=== PATIENT | male | born 1975 | race Caucasian/White ===

== ENCOUNTER → 2019-08-23 15:20 | Outpatient (BNVA) | payer OTHER, SELFPAY | PROVIDERS: Family Provider Internal Medicine; PCP Internal Medicine; Visit Provider Internal Medicine | DX: E03.9 Hypothyroidism, unspecified (principal); F41.9 Anxiety disorder, unspecified; G47.33 Obstructive sleep apnea (adult) (pediatric); K75.81 Nonalcoholic steatohepatitis (NASH) | CPT/HCPCS: 80053; 80061; 83036; 84443; 85025 ==

== ENCOUNTER 2019-09-28 14:16 | Outpatient (CLI) | payer OTHER, SELFPAY ==
[2019-09-28 14:35] LABS: Volume Semen 2.4 mL (2-5)
[2019-09-28 14:37] LABS: Epithelial Count Semen 0-4 /hpf; Red Blood Count Semen 0-4 /hpf; Viscosity Semen Normal; White Blood Count Semen 0-4 /hpf
[2019-09-28 14:38] LABS: Pathology Referral Yes
[2019-09-28 14:39] LABS: PH Semen 8.5 (7.0-8.0)
== END 2019-09-28 14:17 | disposition home or self-care (01) ==
LOC: LAB 14:17
PROVIDERS: PCP Internal Medicine; Visit Provider Internal Medicine
DX: Z02.81 Encounter for paternity testing (principal)
CPT/HCPCS: 80500; 89320

== ENCOUNTER 2021-10-12 08:40 | Day surgery (SDC) | payer OTHER, SELFPAY ==
--- NOTE | 2021-10-12 07:30 | W.PM.OPSFHP ---
Same Day Surgery H&P Indication for Procedure/HPI DATE OF PROCEDURE: October 12, 2021 CHIEF COMPLAINT/INDICATIONFOR SURGICAL PROCEDURE: Dysphagia and hematochezia PREOP DIAGNOSIS: Dysphagia and hematochezia PLANNED PROCEDURE: Operation Date: 10/12/21 10:15 Proposed Procedures p EGD and Colonoscopy [id number],R13.10,K92.1(Not Applicable) - Brendan Omalley MD s Colonoscopy(Not Applicable) - Brendan Omalley MD Medications/Allergies* Home Medications Medication Instructions Recorded Confirmed Type ibuprofen 200 mg capsule 200 mg PO Q6H PRN 08/23/19 10/09/21 History Allergies/Adverse Reactions Allergy/AdvReac Type Severity Reaction Status Date / Time Penicillins Allergy unknown Verified 09/28/21 15:13 Pertinent History/Comorbid Conditions* Medical History (Updated 09/28/21 @ 15:25 by Brendan Omalley MD) Obesity Obstructive sleep apnea of adult Family History (Updated 08/23/19 @ 14:23 by LM Santiago) Cancer Grandfather Grandmother Social History Smoking and tobacco status: never smoked Alcohol intake: current service: No History of recent travel: No Current gender identity: Male Pertinent Exam Findings alert, oriented x 3, clear to auscultation bilaterally, regular rate & rhythm, operative site marked and procedure specific exam findings Recommendations Surgery/Procedure today Coding Level of Care Code Acute Apartment Community Assistant Manager for Jolene Ball
[2021-10-12 09:07] VITALS: BP 134/90; PULSE 76; RESP 18; TEMP 36.8; O2SAT 97
[2021-10-12] MEDS: sodium chloride 0.9% 1,000 ML 30 ML IV (09:18)
--- NOTE | 2021-10-12 09:52 | ANES.PREANE2 ---
Pre-Anesthetic Assessment Height/Weight: Height 1.8 m Weight 131.542 kg Temp Pulse Resp BP Pulse Ox 98.2 F 76 18 134/90 97 10/12/21 09:07 10/12/21 09:07 10/12/21 09:07 10/12/21 09:07 10/12/21 09:07 Preop Diagnosis: Hematochezia Operation Date: 10/12/21 10:15 Proposed Procedures p EGD and Colonoscopy [id number],R13.10,K92.1(Not Applicable) - Brendan Omalley MD s Colonoscopy(Not Applicable) - Brendan Omalley MD Familial anesthetic complications: none Was Beta Beverley taken within 24 hours: N/A Was Clonidine taken within 24 hours: N/A Last intake: Intake Last Liquid Date 10/11/21 Last Liquid Time 21:00 Last Solid Date 10/10/21 Last Solid Time 20:00 Social No alcohol and No tobacco Exam alert, oriented x 3, clear to auscultation bilaterally and regular rate & rhythm Airway Submandibular: within normal limits Cervical ROM: within normal limits Mallampati: Class II Dentition: full Pulmonary Sleep Apnea (wears CPAP) CV/HEM None reported METS > 4 None reported Hepatic None reported GI Gastroesophageal Reflux Disease Dysphagia Metabolic Morbid Obesity and None reported Musc/skel None reported Neuropsych Anxiety Anesthetic Plan ASA status: 3 (46 year old male with hx of GERALD, hematochezia, acute anxiety, and dysphagia ) Anesthesia: Anesthesia Evaluation, General and MAC Other: I discussed with the patient risks, goals, and benefits of MAC and general anesthesia. We discussed spectrum of MAC anesthesia including conversion to general as well as possibility of recall of intraoperative stimuli including discomfort/pain. Patient agrees to proceed with MAC. Risk of > 500 ml blood loss (7ml/kg in children): No Medications/Allergies Home Medications Medication Instructions Recorded Confirmed Last Taken Type ibuprofen 200 mg capsule 200 mg PO Q6H PRN 08/23/19 10/09/21 Unknown History Allergies Allergy/AdvReac Type Severity Reaction Status Date / Time Penicillins Allergy unknown Verified 09/28/21 15:13 Current Medications Generic Name Dose Route Start Last Admin Trade Name Freq PRN Reason Stop Dose Admin Sodium Chloride 1,000 mls @ 30 mls/hr 10/12/21 09:00 10/12/21 09:18 Sodium Chloride 0.9% IV 30 mls/hr .Q24H HUNG Administration PFSH Anesthesia Medical History Obesity Obstructive sleep apnea of adult Family History Grandfather Cancer Grandmother Cancer Social History Smoking and tobacco status: never smoked Alcohol intake: current service: No History of recent travel: No Current gender identity: Male Data Anesthesia Cardiac Studies: No Data to Display
[2021-10-12 11:30] VITALS: BP 118/83; PULSE 78; RESP 18; TEMP 36.1; O2SAT 94
--- NOTE | 2021-10-12 15:57 | ANE.PACU2 ---
Inpatient post-anesthesia follow up: Airway intact: Yes Vital signs: Temperature 97.0 F Pulse Rate 78 Respiratory Rate 18 Blood Pressure 118/83 Pulse Oximetry 94 Oxygen Delivery Me thod Room Air Oxygen Flow Rate Fraction of Inspir ed Oxygen Hydration adequate: Yes Nausea and vomiting: No Pain level: 1 Mental status: Baseline
[2021-10-13 10:45] LABS: H. Pylori / CLO Test Negative
== END 2021-10-12 12:00 | disposition home or self-care (01) ==
PROVIDERS: PCP Internal Medicine; Visit Provider Internal Medicine
PROC: 0DJ08ZZ Inspection of Upper Intestinal Tract, Via Natural or Artificial Opening Endoscopic (ICD-10-PCS; CPT 43235; principal; 2021-10-12 10:15)
PROC: 0DJD8ZZ Inspection of Lower Intestinal Tract, Via Natural or Artificial Opening Endoscopic (ICD-10-PCS; CPT 45378; 2021-10-12 10:15)
DX: K92.1 Melena (principal); R13.10 Dysphagia, unspecified; K57.30 Diverticulosis of large intestine without perforation or abscess without bleeding; K29.70 Gastritis, unspecified, without bleeding; K21.9 Gastro-esophageal reflux disease without esophagitis; E66.01 Morbid (severe) obesity due to excess calories; Z68.41 Body mass index [BMI] 40.0-44.9, adult; F41.9 Anxiety disorder, unspecified; G47.33 Obstructive sleep apnea (adult) (pediatric); K21.00 Gastro-esophageal reflux disease with esophagitis, without bleeding
CPT/HCPCS: 43239; 45378; 87077; J2704; J7030

== ENCOUNTER 2022-01-06 12:17 | Outpatient (CLI) | payer OTHER, SELFPAY ==
--- NOTE | 2022-01-06 12:42 | MR_ITS ---
WS: [id number] MRI BRAIN WITH AND WITHOUT CONTRAST HISTORY: NEOPLASM OF UNCERTAIN BEHAVIOR. COMPARISON: 01/30/2007, CT brain 01/31/2007 TECHNIQUE: Multiplanar imaging performed through the brain with MultiHance 10 ml's IV. No acute infarcts are seen. Mendez-white matter differentiation is well preserved. No cerebral atrophy. No prior infarcts. No significant ischemic disease. No susceptibility artifacts or prior lacunar infarcts. Ventricles and extra-axial spaces are normal. Clivus and pituitary gland are normal. Visualized posterior fossa and brainstem are also normal. 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 This mass is of pre dominantly increased signal on the T2 sequences measuring 18 x 14 mm. There is no significant amount of enhancement on the postcontrast imaging. Mass is of low to intermediate signal on the T1 sequences . Mass is causing mild encroachment and narrowing of the foramen rotundum with mild encroachment upon the RIGHT pterygopalatine fossa. There is mild encroachment into the vidian canal. As [facility] no interval change. This mass does not appear to abut the optic nerve or op tic chiasm. Very mildly prominent soft tissue thickening with enhancement in the posterior nasopharynx. Enhanceme nt and soft tissue thickening is midline and slightly greater to the RIGHT of midline. Soft tissue th ickening measures 1.0 x 1.2 cm. No additional enhancing masses are identified. Dural venous sinuses are normal. Paranasal sinuses: Well aerated with no significant disease. Mastoid air cells: Small amount of fluid in the mastoid air cells. Calvarium and scalp: Normal. MR/MR head wo/w con [id number] IMPRESSION: 1. 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 Mass measures 18 x 14 mm with mild encroachment upon the foramen rotu ndum, pterygopalatine fossa and vidian canal. Stable since 2006. No enhancement . May be congenital bone lesion. 2. Very mild soft tissue thickening in the posterior nasopharynx extending jus t to the RIGHT of midline. Area of soft tissue thickening and enhancement measu res 1.0 x 1.2 cm. This is slightly asymmetric and doesn't enhance. Direct visua lization suggested to exclude early mucosal neoplasm.
[2022-01-06] MEDS: gadobenate dimeglumine 20 mL vial IV (13:37)
== END 2022-01-06 12:18 | disposition home or self-care (01) ==
LOC: RAD 12:17
PROVIDERS: PCP Internal Medicine; Visit Provider Specialist
DX: D48.7 Neoplasm of uncertain behavior of other specified sites (principal)
CPT/HCPCS: 70553